=== PATIENT | female | born 1990 | race American Indian/Alaskan Native ===

== ENCOUNTER 2018-06-03 10:29 | Emergency (ER) | payer SELFPAY ==
[2018-06-03 10:56] VITALS: BP 145/91
--- NOTE | 2018-06-03 11:51 | Emergency Department Report ---
Chief Complaint: Urogenital-Female Stated Complaint: STD CHECK Time Seen by Provider: 06/03/18 11:24 - HPI History of Present Illness: This is a 27-year-old female nontoxic, well nourished in appearance, no acute signs of distress presents to the ED for STD check. Patient stated that her partner has been diagnosed with chlamydia and was retested. Patient stated that she has some vaginal discharge. Patient denies any vaginal pain or swelling. Patient denies any vaginal ulcers or lesions. Patient denies any nausea, vomiting, chest pain, shortness of breathe, fever, chills, headache, back pain, numbness, tingling, stiff neck. Patient denies any urinary symptoms. Patient denies any allergies or PMH. - Exam Vital Signs: Vital Signs 06/03/18 10:54 Temperature 98.7 F Pulse Rate 79 Respiratory 16 Rate Blood Pressure 145/91 O2 Sat by Pulse 99 Oximetry Physical Exam: GENERAL: The patient is a well-developed, well-nourished in no apparent distress. Patient is alert and acting appropriately for age. Alert and oriented 3, no apparent distress, normal gait, atraumatic. HEART: Regular rate and rhythm without murmur, rubs or gallops. No reproducible. S1, S2 present, regular rate and rhythm without murmur, no rubs, no gallops. LUNGS: Clear to auscultation. Non labor breathing. No intercostal retractions. Symmetrical with respiration, no wheezing, no rales, or crackles. ABDOMEN: Soft, nontender, and nondistended. Positive bowel sounds. No hepatosplenomegaly was noted. No guarding or rebound tenderness, negative epigastric bruit. Negative psoas sign, negative newman sign, negative McBurneys sign My physical exam MSE screening note: Focused history and physical exam performed. Due to findings the following was ordered: ED Medical Decision Making - Medical Decision Making This is a 27-year-old female that presents with nonmedical emergency. Patient is stable and was examined by me. Patient is asymptomatic and denies any symptoms besides some nonfoul odor white color vaginal discharge. Patient states she just wants to be tested for STD. Chief Information Security Officer has approached patient for a co-pay but patient refused. I will refer the patient [facility] Department. At time of discharge, the patient does not seem toxic or ill in appearance. No acute signs of distress noted. Patient agrees to discharge treatment plan of care. No further questions noted by the patient. ED Disposition for MSE Clinical Impression: Possible exposure to STD Disposition: - MED SCREENING EXAM-LEFT Is pt being admited?: No Condition: Stable Instructions: Safe Sex (ED) Additional Instructions: Follow-up with a primary care doctor/[facility] in 2-3 days or if symptoms worsen and continue return to emergency room as soon as possible. Referrals: PRIMARY MD JOSE [Primary Care Provider] - 3-5 Days MONSE LAZO MD [Staff Physician] - 3-5 Days [facility] [Outside] - 3-5 Days [facility] [Outside] - 3-5 Days
== END 2018-06-03 11:56 | disposition left against medical advice (07) ==
LOC: ED 10:29
DX: N89.8 Other specified noninflammatory disorders of vagina (principal)
CPT/HCPCS: 99281